=== PATIENT | female | born 1985 | race Caucasian/White ===

== ENCOUNTER 2019-03-31 06:43 | Day surgery (SDC) | payer OTHER ==
[2019-03-24 17:22] LABS: Urine Appearance CLEAR; Urine Bilirubin NEGATIVE (NEG); Urine Blood 2+ (NEG); Urine Color YELLOW; Urine Glucose NEGATIVE (NEG); Urine Protein NEGATIVE (NEG); Urine Specific Gravity >=1.030 (1.005-1.030); Urine Urobilinogen 0.2 mg/dL (0.2-1.0); Urine pH 5.5 (5.0-7.0)
[2019-03-24 17:23] LABS: Urine Microscopic Reflex ORDER UMIC
[2019-03-24 17:45] LABS: Urine Bacteria 20-50 /HPF (<20); Urine Culture Reflex Order REFLEXED; Urine RBC <5 /HPF (NONE SEEN)
[2019-03-24 17:45] LABS: Absolute Lymphocytes (CBC) 3.8 K/uL (0.7-4.9); Absolute Monocytes 0.7 K/uL (0.1-1.3); Absolute Neutrophil 5.9 K/uL (1.8-8.0); Basophils % 0.3 % (0-1.3); Eosinophils % 0.9 % (0-4.4); Hematocrit 38.5 % (36.0-45.0); Lymphocytes % 35.7 % (15.3-44.8); RBC Red Blood Cell Count 4.43 M/uL (3.86-4.86)
[2019-03-31] MEDS ORDERED: Ringers Lactate 1,000 ML IV ONE (07:21)
[2019-03-31] MEDS ORDERED: SCOPOLAMINE HYDROBROMIDE PATCH TD ONE (07:21)
[2019-03-31] MEDS ORDERED: FENTANYL CITR 100 MCG/2 ML ONE ×2 (07:45→08:48)
[2019-03-31] MEDS ORDERED: LIDOCAINE 2% MPF 5 ML VIAL ONE (07:45)
[2019-03-31] MEDS ORDERED: ROCURONIUM 50 MG/5 ML VIAL IV ONE (07:45)
[2019-03-31] MEDS ORDERED: MIDAZOLAM HCL 2 MG/2 ML INJ ONE (07:45)
[2019-03-31] MEDS ORDERED: PROPOFOL 200 MG/20 ML VIAL IV ONE (07:45)
[2019-03-31] MEDS ORDERED: DEXAMETHASONE 10 MG/ML VIAL ONE (07:45)
[2019-03-31] MEDS ORDERED: KETOROLAC 30 MG/ML INJ ONE (09:12)
[2019-03-31] MEDS: HYDROMORPHONE HCL 1 MG/ML INJ ONE ×4 (09:25→09:41)
[2019-03-31] MEDS ORDERED: HYDROCODONE/APAP 5/325 MG TAB ONE (10:50)
--- NOTE | 2019-04-01 11:41 | OP ---
Date of Procedure: 03/31/2019 Surgeon: Rhonda Saavedra MD Multiskill Operator: No assistants, just my scrub techs. Preoperative Diagnoses: Desires sterilization. The patient with history of severe cervical dysplasi a, and status post loop electrosurgical excision procedure and hyperlipidemia. Postoperative Diagnoses: Desires sterilization. The patient with history of severe cervical dysplas ia, and status post loop electrosurgical excision procedure and hyperlipidemia and leiomyoma. Procedures Performed: Laparoscopic bilateral salpingectomy and myomectomy x1. Anesthesia: General endotracheal. Specimens: Bilateral tubes and myoma. Complications: No complications. Drains: No drains. Condition: Stable. Findings: Anterior wall subserosal leiomyoma about 1.5 cm. Bilateral tubes normal. No endometriosi s. Procedure In Detail: After informed consent was verified, the patient was taken back to OR, placed i n a supine fashion on the operating table. After general anesthesia was given, she was placed in a d orsal lithotomy position using Jm stirrups. No antibiotics were given. SCDs were placed and a ti me-out was done. Arms were tucked by the side after the positioning was checked and was optimal. Th en, abdomen, vulva, vagina, and perineum were prepped and draped in a sterile fashion. Hawk was samanta daysi to drain the bladder and diagnostic VCare was placed into the uterine cavity without any problems . After these were fixed in place, then 1 cm infraumbilical incision was made with a scalpel using t he open laparoscopy technique. The skin was incised. Fascia was incised, tagged with 0 Vicryl sutur es. Peritoneum was entered bluntly. S retractors placed. Merry introduced. Site of entry was suzy cked, unremarkable. Upper abdominal surfaces surveyed including the liver, gallbladder, peritoneum, the upper abdomen, omentum, all unremarkable. The patient was placed into Trendelenburg position and two 5 mm suprapubic and left lower quadrant ports were placed under direct vision. The bowel was re tracted superiorly. Both tubes were visualized and the pelvic peritoneum was inspected. No endometr iosis. There was a myoma on the anterior aspect. A curved-tip LigaSure was taken to remove the myom a and retrieved through the umbilical port. Bilateral tubes were taken down with the help of the Lig aSure in the usual fashion and then retrieved and handed off for permanent pathology. Thorough irrig ation and suction were performed with normal saline. Then, trocars were removed under direct vision. Gas was desufflated. Fascia closed at the umbilicus after the Merry was removed with the help of a 0 Vicryl tag sutures by tying on both ends. The skin closed with interrupted 4-0 Vicryl sutures. VCare and Hawk were removed. Instrument, needle, and sponge counts were done and were correct at th e end of the case. The patient tolerated the procedure well. She will follow up with me in 1 week. PAULA/ERI Voice ID: [id number] Report ID: [id number]
== END 2019-03-31 11:15 | disposition home or self-care (01) ==
LOC: OR 06:43
PROVIDERS: ATTEND Obstetrics & Gynecology
PROC: 0UT74ZZ Resection of Bilateral Fallopian Tubes, Percutaneous Endoscopic Approach (ICD-10-PCS; 2019-03-31)
PROC: 0UB94ZZ Excision of Uterus, Percutaneous Endoscopic Approach (ICD-10-PCS; principal; 2019-03-31 08:30)
DX: Z30.2 Encounter for sterilization (principal); D25.2 Subserosal leiomyoma of uterus; E78.5 Hyperlipidemia, unspecified; K21.9 Gastro-esophageal reflux disease without esophagitis; Z87.410 Personal history of cervical dysplasia; Z98.890 Other specified postprocedural states; Z88.3 Allergy status to other anti-infective agents; Z88.8 Allergy status to other drugs, medicaments and biological substances; Z82.49 Family history of ischemic heart disease and other diseases of the circulatory system; Z82.3 Family history of stroke; Z83.3 Family history of diabetes mellitus
CPT/HCPCS: 36415; 81003; 81015; 81025; 85025; 86850; 86900; 86901; 87086; 87088; 88305; J1100; J1170; J2250; J2704; J3010